=== PATIENT | female | born 1990 | race Caucasian/White ===

== ENCOUNTER 2025-02-08 23:29 | Inpatient (IN) | payer SELFPAY ==
[2025-02-09 00:21] LABS: Pregnancy Test - Urine (BHCG) Negative (Negative); Pregu Control Background? CLEAR/WHITE (CLR/WHITE); Pregu Control Bar Appear? YES (CONTROL BAR)
[2025-02-09 00:31] LABS: Cocaine Metabolite Screen Negative (Negative); THC/Cannabinoid Screen PRELIM POSITIVE (Negative); Tricyclic Screen Negative (Negative)
[2025-02-09 00:55] LABS: BHCG - Serum Negative (NEGATIVE); Pregs Control Background? CLEAR/WHITE (CLR/WHITE); Pregs Control Bar Appear? YES (CONTROL BAR)
[2025-02-09 00:57] LABS: #Basophils Less than 0.03 10x3/uL (0.0-0.2); #Eosinophils Less than 0.03 10x3/uL (0.0-0.7); #Monocytes 0.78 10x3/uL (0.11-0.59); #Neutrophils 14.32 10x3/uL (1.40-6.50); %Basophils 0.1 % (0.0-1.0); %Eosinophils 0.0 % (0.0-10.0); %Lymphocytes 3.4 % (21.0-51.0); %Monocytes 5.0 % (0.0-10.0); %Neutrophils 90.9 % (42.0-75.0); Hematocrit 42.2 % (36.0-47.0); Hemoglobin 15.1 g/dL (12.0-16.0); Mean Corpuscular Hemoglobin 33.9 pg (27.0-31.0); Mean Corpuscular Volume 94.6 fL (78.0-98.0); Platelet Count 128 10x3/uL (130-400); Red Blood Cell (RBC) Count 4.46 mill/uL (4.20-5.40); White Blood Cell (WBC) Count 15.75 10x3/uL (4.8-10.8)
[2025-02-09] MEDS ORDERED: Magnesium 2 GM/50 ML BAG (IN WATER) ONE (00:58)
[2025-02-09] MEDS ORDERED: Ondansetron PF 4 MG/2 ML Vial ONE (01:01)
[2025-02-09 01:03] LABS: Acetaminophen Less than 10 mcg/mL (Less than 10); Salicylate Less than 8.0 mg/dL (Less than 8.0)
[2025-02-09 01:05] LABS: ALT (SGPT) 124 U/L (Less than 34); AST (SGOT) 234 U/L (11-34); Albumin 4.7 g/dL (3.1-4.5); Alkaline Phosphatase 165 U/L (40-110); Anion Gap 23 mmol/L (10-20); BUN (Urea Nitrogen) 12 mg/dL (7.0-18.7); Bilirubin, Total 3.3 mg/dL (0.3-1.2); Calc. Creatinine Clearance 0 mL/min (70-130); Calcium 10.3 mg/dL (7.8-10.44); Carbon Dioxide 31 mmol/L (22-29); Chloride 78 mmol/L (98-107); Globulin 3.3 g/dL (2.4-3.5); Glucose 132 mg/dL (70-105); Potassium 2.2 mmol/L (3.5-5.1); Sodium 130 mmol/L (136-145)
[2025-02-09] MEDS ORDERED: Potassium Bicarbonate/Cit Ac 20 MEQ TAB ONE ×2 (01:29→01:35)
[2025-02-09 01:49] LABS: CK (CPK) 477 U/L (29-168); Lipase 10 U/L (8-78)
[2025-02-09] MEDS ORDERED: Ondansetron PF 4 MG/2 ML Vial IVP PRN (03:59)
[2025-02-09] MEDS ORDERED: Calcium Carbonate 500 MG ChewTAB PO PRN (03:59)
[2025-02-09] MEDS ORDERED: Electrolyte Replacement Protocol 1 EACH FS SCH (04:00)
[2025-02-09] MEDS ORDERED: Electrolyte Replacement Protocol 1 EACH FS PRN (04:16)
[2025-02-09] MEDS: Folic Acid 1 MG TAB PO SCH (08:06)
[2025-02-09] MEDS: Multivit, Therapeutic 1 TAB PO SCH (08:06)
[2025-02-09] MEDS: Pantoprazole 40 MG VIAL IVP SCH (08:07)
[2025-02-09 15:24] LABS: Magnesium 2.3 mg/dL (1.6-2.6); Potassium 2.6 mmol/L (3.5-5.1)
[2025-02-09] MEDS: diphenhydrAMINE 50 MG/ML VIAL ONE (22:07)
[2025-02-09] MEDS ORDERED: Fentanyl BOLUS 100 ML IVPB PRN (23:45)
[2025-02-09] MEDS ORDERED: Propofol BOLUS 1,000 MG/100 ML VIAL IV PRN (23:45)
[2025-02-09] MEDS ORDERED: Ventilator Sedation Protocol 1 EACH FS SCH (23:45)
[2025-02-09] MEDS ORDERED: DISCONTINUE PREVIOUS NARCOTIC PAIN MEDICATIONS AND BENZODIAZEPINES FS SCH (23:45)
[2025-02-10 06:55] LABS: ALT (SGPT) 193 U/L (Less than 34); AST (SGOT) 296 U/L (11-34); Albumin 3.6 g/dL (3.1-4.5); Alkaline Phosphatase 132 U/L (40-110); Anion Gap 14 mmol/L (10-20); BUN (Urea Nitrogen) 7 mg/dL (7.0-18.7); Bilirubin, Total 1.8 mg/dL (0.3-1.2); Calc. Creatinine Clearance 231 mL/min (70-130); Calcium 9.0 mg/dL (7.8-10.44); Carbon Dioxide 30 mmol/L (22-29); Chloride 97 mmol/L (98-107); Globulin 2.5 g/dL (2.4-3.5); Glucose 108 mg/dL (70-105); Potassium 2.6 mmol/L (3.5-5.1); Sodium 138 mmol/L (136-145)
[2025-02-10 07:47] LABS: Hematocrit 36.8 % (36.0-47.0); Hemoglobin 12.4 g/dL (12.0-16.0); Mean Corpuscular Hemoglobin 34.2 pg (27.0-31.0); Mean Corpuscular Volume 101.4 fL (78.0-98.0); Platelet Count 84 10x3/uL (130-400); Red Blood Cell (RBC) Count 3.63 mill/uL (4.20-5.40); White Blood Cell (WBC) Count 6.67 10x3/uL (4.8-10.8)
[2025-02-10 08:14] LABS: Anisocytosis MARKED = >30 cells HPF (0-5); Macrocytosis MODERATE=16-30 cells HPF (0-5); Platelet Adequacy Comment Platelets Decreased; Polychromasia SLIGHT = 2-3 cells HPF (0-2)
[2025-02-10 08:25] LABS: #Basophils Less than 0.03 10x3/uL (0.0-0.2); #Eosinophils 0.04 10x3/uL (0.0-0.7); #Monocytes 0.47 10x3/uL (0.11-0.59); #Neutrophils 4.75 10x3/uL (1.40-6.50); %Basophils 0.3 % (0.0-1.0); %Eosinophils 0.6 % (0.0-10.0); %Lymphocytes 20.5 % (21.0-51.0); %Monocytes 7.0 % (0.0-10.0); %Neutrophils 71.3 % (42.0-75.0)
[2025-02-10] MEDS: Potassium Chloride 20 MEQ in Premix 1 BAG IVPB SCH (08:55)
[2025-02-10] MEDS: PNEUMOC 20-VAL CONJ-DIP CRM/PF 0.5 ML SYRINGE IM ONE (12:53)
[2025-02-10] MEDS: Enoxaparin 40 MG (0.4 mL) SYRINGE SC SCH (20:58)
[2025-02-11 07:24] LABS: Anion Gap 12 mmol/L (10-20); BUN (Urea Nitrogen) 4 mg/dL (7.0-18.7); Calc. Creatinine Clearance 226 mL/min (70-130); Calcium 9.0 mg/dL (7.8-10.44); Carbon Dioxide 30 mmol/L (22-29); Chloride 97 mmol/L (98-107); Glucose 105 mg/dL (70-105); Magnesium 1.5 mg/dL (1.6-2.6); Potassium 3.3 mmol/L (3.5-5.1); Sodium 136 mmol/L (136-145)
[2025-02-11] MEDS: Mupirocin 1 GM TUBE NASAL DECOLONIZATION NASAL SCH (09:06)
[2025-02-11] MEDS: Magnesium 2 GM/50 ML(in water) 2 GM in Premix 1 BAG IVPB SCH (09:07)
[2025-02-11 10:03] LABS: ALT (SGPT) 305 U/L (Less than 34); AST (SGOT) 452 U/L (11-34); Albumin 3.1 g/dL (3.1-4.5); Alkaline Phosphatase 163 U/L (40-110); Bilirubin, Direct 1.2 mg/dL (0.1-0.3); Bilirubin, Total 1.9 mg/dL (0.3-1.2)
[2025-02-11] MEDS: Acetaminophen 325 MG TAB PO PRN (21:18)
[2025-02-12] MEDS: Thiamine 100 MG TAB PO SCH (10:38)
[2025-02-13 02:09] LABS: Hematocrit 37.1 % (36.0-47.0); Hemoglobin 12.5 g/dL (12.0-16.0); Mean Corpuscular Hemoglobin 33.6 pg (27.0-31.0); Mean Corpuscular Volume 99.7 fL (78.0-98.0); Platelet Count 194 10x3/uL (130-400); Red Blood Cell (RBC) Count 3.72 mill/uL (4.20-5.40); White Blood Cell (WBC) Count 8.78 10x3/uL (4.8-10.8)
[2025-02-13 03:07] LABS: Prothrombin Time Greater than 150.0 sec (12.0-14.7)
[2025-02-13 03:50] LABS: Anion Gap 18 mmol/L (10-20); BUN (Urea Nitrogen) 7 mg/dL (7.0-18.7); Calc. Creatinine Clearance 241 mL/min (70-130); Calcium 9.5 mg/dL (7.8-10.44); Carbon Dioxide 18 mmol/L (22-29); Chloride 99 mmol/L (98-107); Glucose 90 mg/dL (70-105); Potassium 3.6 mmol/L (3.5-5.1); Sodium 131 mmol/L (136-145)
[2025-02-13 05:06] LABS: INR-International Normal Ratio 1.2; Prothrombin Time 15.2 sec (12.0-14.7)
[2025-02-13 05:15] LABS: Magnesium 1.4 mg/dL (1.6-2.6)
[2025-02-13 05:34] VITALS: BMI 35.2
[2025-02-13] MEDS: Magnesium 2 GM/50 ML(in water) 2 GM in Premix 1 BAG IVPB SCH (05:40)
[2025-02-13 13:03] VITALS: TEMP 98.9
[2025-02-13 17:22] LABS: ALT (SGPT) 249 U/L (Less than 34); AST (SGOT) 157 U/L (11-34); Albumin 3.3 g/dL (3.1-4.5); Alkaline Phosphatase 175 U/L (40-110); Bilirubin, Direct 0.7 mg/dL (0.1-0.3); Bilirubin, Total 1.2 mg/dL (0.3-1.2)
== END 2025-02-13 15:59 | disposition home or self-care (01) | DRG 896 ==
LOC: ERS 23:29 → ERHOLD 02-09 01:59 → IMCU/EMU 02-09 03:23
PROVIDERS: ADMIT Student in an Organized Health Care Education/Training Program; ATTEND Internal Medicine
PROC: HZ2ZZZZ Detoxification Services for Substance Abuse Treatment (ICD-10-PCS; principal; 2025-02-09)
DX: F10.239 Alcohol dependence with withdrawal, unspecified (principal); G92.8 Other toxic encephalopathy; E87.1 Hypo-osmolality and hyponatremia; R45.851 Suicidal ideations; E87.6 Hypokalemia; E80.6 Other disorders of bilirubin metabolism; R74.01 Elevation of levels of liver transaminase levels; F41.9 Anxiety disorder, unspecified; E83.42 Hypomagnesemia; F12.90 Cannabis use, unspecified, uncomplicated
CPT/HCPCS: 36415; 71045; 76705; 80048; 80053; 80076; 80306; 80307; 81025; 82140; 82550; 83605; 83690; 83735; 84100; 84443; 84484; 84703; 85025; 85027; 85610; 93005; 93306; 96361; 96365; 96367; 96375; J1200; J1630; J2060; J2470; J2560; J3411; J3475; J3480; J7120